=== PATIENT | female | born 1980 | race Two or more races ===

== ENCOUNTER → 2016-05-14 | Outpatient (CLI) | payer OTHER ==
[2016-05-15 07:58] LABS: MUMPS IGG AB >300.0 AU/mL (Immune >10.9); RUBEOLA IGG AB >300.0 AU/mL (Immune >29.9); VARICELLA ZOSTER IGG AB <135 index (Immune >165)
== END ==
LOC: OD 11:26
PROVIDERS: ATTEND Family Medicine
DX: Z02.0 Encounter for examination for admission to educational institution (principal)
CPT/HCPCS: 36415; 86317; 86735; 86762; 86765; 86787

== ENCOUNTER → 2016-06-25 | Outpatient (CLI) | payer OTHER ==
[2016-06-25 10:17] LABS: ALANINE AMINOTRANSFERASE 29 U/L (9-52); ALBUMIN 4.1 g/dL (3.5-5.0); ALKALINE PHOSPHATASE 76 U/L (38-126); ASPARTATE AMINO TRANSFERASE 18 U/L (14-36); BILIRUBIN,TOTAL 0.4 mg/dL (0.2-1.3); CHOLESTEROL 162.58 mg/dL (0-200); Direct HDL 52 mg/dL (>40); TOTAL PROTEIN 7.5 g/dL (6.3-8.2); TRIGLYCERIDES 113 mg/dL (<150)
[2016-06-25 10:28] LABS: DIRECT LDL 82 mg/dL (<100)
== END ==
LOC: OD 09:04
DX: E66.01 Morbid (severe) obesity due to excess calories (principal); E03.9 Hypothyroidism, unspecified; Z79.899 Other long term (current) drug therapy
CPT/HCPCS: 36415; 80061; 80076; 83036

== ENCOUNTER 2016-07-07 08:44 | Emergency (ER) | payer OTHER ==
[2016-07-07 09:13] VITALS: BP 138/79
[2016-07-07] MEDS ORDERED: DIPH/PERTUSS(ACELL)/TETANUS VAC/PF 0.5 ML SYR (>=10YO) IM ONE (09:39)
[2016-07-07] MEDS ORDERED: OXYCODONE HCL IR 5 MG TABLET PO ONE (09:39)
--- NOTE | 2016-07-07 09:52 | ER Document Report ---
HPI - HPI Patient complains to provider of: finger injury Onset: Just prior to arrival Onset/Duration: Sudden Quality of pain: Sharp Pain Level: 5 Context: Patient states that she closed her finger in a car door just prior to arrival. Patient complains of pain and tingling to her left second finger. Associated Symptoms: Other - Finger injury Exacerbated by: Movement Relieved by: Denies Similar symptoms previously: No Recently seen / treated by doctor: No - ROS ROS below otherwise negative: Yes Systems Reviewed and Negative: Yes All other systems reviewed and negative - CONSTITUTIONAL Constitutional: DENIES: Fever, Chills - NEURO Neurology: DENIES: Weakness - GASTROINTESTINAL Gastrointestinal: DENIES: Nausea, Patient vomiting - REPRODUCTIVE Reproductive: DENIES: : - MUSCULOSKELETAL Musculoskeletal: REPORTS: Extremity pain - Left second finger, Swelling - DERM Skin Color: Normal Skin Problems: Laceration Past Medical History - General Information source: Patient - Social History Smoking Status: Never Smoker Chew tobacco use (# tins/day): No Frequency of alcohol use: None Drug Abuse: None Occupation: none Lives with: Family Family History: Arthritis, CAD, CVA, Hyperlipidemia, Hypertension Patient has suicidal ideation: No Patient has homicidal ideation: No Endocrine Medical History: Reports: Hx Hypothyroidism Renal/ Medical History: Denies: Hx Kidney Stones, Hx Peritoneal Dialysis GI Medical History: Reports: Hx Gastroesophageal Reflux Disease - , depression. Denies: Hx Hiatal Hernia, Hx Ulcer Musculoskeltal Medical History: Denies Hx Arthritis Skin Medical History: Reports Hx Psoriasis Psychiatric Medical History: Reports: Hx Bipolar Disorder, Hx Depression, Hx Post Traumatic Stress Disorder Denies: Hx Schizophrenia Past Surgical History: Reports: Hx Thyroid Surgery - thyroidectomy, Hx Tubal Ligation - Immunizations Hx Diphtheria, Pertussis, Tetanus Vaccination: Yes - 01/25/12 Vertical Provider Document - CONSTITUTIONAL Agree With Documented VS: Yes Exam Limitations: No Limitations General Appearance: WD/WN, No Apparent Distress - INFECTION CONTROL TRAVEL OUTSIDE OF THE [place] IN LAST 30 DAYS: No - HEENT HEENT: Atraumatic, Normocephalic - NECK Neck: Normal Inspection, Supple - RESPIRATORY Respiratory: Breath Sounds Normal, No Respiratory Distress O2 Sat by Pulse Oximetry: 100 - CARDIOVASCULAR Cardiovascular: Regular Rate, Regular Rhythm Pulses: Normal: Radial - BACK Back: Normal Inspection - MUSCULOSKELETAL/EXTREMETIES Musculoskeletal/Extremeties: MAEW, Tender - Left second finger tenderness to distal phalanx, positive partial nail avulsion, Eccymosis Notes: No tendon deficit - NEURO Level of Consciousness: Awake, Alert, Appropriate Motor/Sensory: No Motor Deficit - DERM Integumentary: Warm, Dry, Laceration - Along lateral margin of nail of left second finger Course - Vital Signs Vital signs: Temp Pulse Resp BP Pulse Ox 98.0 F 73 16 138/79 H 100 07/07/16 08:50 07/07/16 08:50 07/07/16 08:50 07/07/16 08:50 07/07/16 08:50 - Diagnostic Test Radiology reviewed: Image reviewed, Reports reviewed Procedures - Immobilization Left 2nd digit Pre-Proc Neuro Vasc Exam: Normal Immobilizer type: Finger splint (Static) Performed by: PCT Post-Proc Neuro Vasc Exam: Normal Alignment checked and good: Yes - Laceration/Wound Repair Left 2nd digit Wound length (cm): 1.5 Wound's Depth, Shape: Irregular Laceration pre-procedure: Betadine prep applied, Chloraprep applied Anesthetic type: 1% Lidocaine - digital block Wound explored: Clean Wound Debrided: corner of nail plate returned to nail bed Wound Repaired With: Sutures Suture Size/Type: 5:0, Nylon Number of Sutures: 1 Layer Closure?: No Post-procedure wound care: Sterile dressing applied, Splint applied Post-procedure NV exam normal: Yes Complications: No Discharge - Discharge Clinical Impression: Crush injury Open fracture of tuft of distal phalanx of finger Qualifiers: Encounter type: initial encounter Qualified Code(s): S62.639B - Displaced fracture of distal phalanx of unspecified finger, initial encounter for open fracture Condition: Stable Disposition: HOME, SELF-CARE Instructions: Crush Injury ([facility]), Open Finger Tuft Fracture ([facility]), Laceration Care ([facility]), Cephalexin ([facility]), Splint Precautions ([facility]) Additional Instructions: Return immediately for any new or worsening symptoms Followup with your primary care provider, call tomorrow to make a followup appointment Follow up with orthopedic hand specialist for recheck Get antibiotic prescription filled and take as prescribed Suture removal in 8 days Prescriptions: Cephalexin Monohydrate [Keflex 500 mg Capsule] 500 mg PO Q6H 7 Days Oxycodone HCl/Acetaminophen [Percocet 5-325 mg Tablet] 1 - 2 tab PO ASDIR PRN # 15 tablet PRN Reason: Forms: Return to School Referrals: STACY ROLLINS DO [ACTIVE STAFF] - Follow up in 3-5 days
[2016-07-07] MEDS ORDERED: CEFAZOLIN 1 GM/D5W RTU 50 ML IV ONE (10:06)
[2016-07-07] MEDS ORDERED: LIDOCAINE 1% INJ-PF (10 MG/ML) 30 ML SDV INJ ONE (10:51)
== END 2016-07-07 12:30 | disposition home or self-care (01) ==
LOC: ER 08:44
PROC: 0HQGXZZ Repair Left Hand Skin, External Approach (ICD-10-PCS; principal; 2016-07-07)
DX: S62.639B Displaced fracture of distal phalanx of unspecified finger, initial encounter for open fracture (principal); X58.XXXA Exposure to other specified factors, initial encounter
CPT/HCPCS: 99283; 90471; 96365; 73140; 90715; 12001; J0690; J3490